=== PATIENT | male | born 1980 | race Caucasian/White ===

== ENCOUNTER → 2017-09-28 | Day surgery (SDC) | payer OTHER ==
[~2017-09-28] MED LIST: BUPIVACAINE 0.5% 10 ML SDV ONE; DEPO METHYLPREDNISOLONE 80 MG/ML SDV ONE
== END | disposition home or self-care (01) ==
LOC: FIMAGING 08:18
PROVIDERS: ATTEND Physical Medicine & Rehabilitation
PROC: 3E0U3GC Introduction of Other Therapeutic Substance into Joints, Percutaneous Approach (ICD-10-PCS; principal; 2017-09-28)
DX: M46.1 Sacroiliitis, not elsewhere classified (principal)
CPT/HCPCS: J1040